=== PATIENT | female | born 1945 | race Caucasian/White ===

== ENCOUNTER 2021-10-22 06:09 | Day surgery (SDC) | payer OTHER, SELFPAY ==
[~2021-10-22] VITALS: Ht 167.6 cm; Wt 81.6 kg
[2021-10-22] MEDS ORDERED: SEVOFLURANE 15 MIN GAS INH ONE (07:53)
[2021-10-22] MEDS ORDERED: ETOMIDATE 20 MG/ 10 ML VIAL (AMIDATE) IVP ONE (07:53)
[2021-10-22] MEDS ORDERED: fentaNYL CITRATE/PF 100 MCG/2 ML AMP IVP ONE (07:53)
[2021-10-22] MEDS ORDERED: METOCLOPRAMIDE HCL 10 MG/2 ML VIAL IVP ONE (07:53)
[2021-10-22] MEDS ORDERED: LIDOCAINE 2%, 20 ML MDV INJ ONE (07:53)
[2021-10-22] MEDS ORDERED: LR 1,000 ML IV.SOLN IV ONE (07:53)
[2021-10-22] MEDS ORDERED: GLYCOPYRROLATE 0.2 MG/ML VIAL IJ ONE (07:53)
[2021-10-22] MEDS ORDERED: CEFAZOLIN 2 GM IVPB PREMIX 50 ML IV ONE (07:53)
[2021-10-22] MEDS ORDERED: ONDANSETRON HCL 4 MG/2 ML VIAL IVP ONE (07:53)
[2021-10-22] MEDS ORDERED: HYDROmorphone 1 MG/ML INJ. CARTRIDGE IVP PRN (08:15)
[2021-10-22] MEDS ORDERED: ONDANSETRON HCL 4 MG/2 ML VIAL IVP PRN ×2 (08:15→09:15)
[2021-10-22] MEDS ORDERED: HYDROmorphone 2 MG/ML VIAL IVP PRN (08:15)
[2021-10-22] MEDS ORDERED: LR 1,000 ML IV SCH (08:15)
[2021-10-22] MEDS ORDERED: OXYCODONE/ACETAMINOPHEN 5-325 TABLET PO PRN ×2 (09:15)
[2021-10-22] MEDS ORDERED: HYDROcodone/ACETAMIN 5-325 MG TAB (NORCO/ VICODIN) PO PRN (09:15)
[2021-10-22 10:43] VITALS: BP_SYST 160
== END 2021-10-22 11:10 | disposition home or self-care (01) ==
LOC: SDS 06:09 → SMU 06:20 → SDS 06:20 → SMU 11:10 → SDS 11:10
PROVIDERS: ATTEND Specialist
DX: N95.0 Postmenopausal bleeding (principal); N84.0 Polyp of corpus uteri; I10 Essential (primary) hypertension; E78.00 Pure hypercholesterolemia, unspecified; R93.89 Abnormal findings on diagnostic imaging of other specified body structures; N20.0 Calculus of kidney; Z78.0 Asymptomatic menopausal state; Z20.822 Contact with and (suspected) exposure to COVID-19; Z79.899 Other long term (current) drug therapy
CPT/HCPCS: 58558; 88305; 88307; C1819; J0690; J2001; J2405; J2765; J3010; J3490 ×2; J7120; U0003; 88342